=== PATIENT | female | born 1960 | race Caucasian/White ===

== ENCOUNTER 2017-10-01 12:14 | Day surgery (SDC) | payer BC ==
[2017-10-01] MEDS ORDERED: PROPOFOL 20 ML ×3 (14:33→14:40)
== END 2017-10-01 15:26 | disposition home or self-care (01) ==
LOC: GIL 12:14
DX: Z12.11 Encounter for screening for malignant neoplasm of colon (principal); D12.5 Benign neoplasm of sigmoid colon; K29.70 Gastritis, unspecified, without bleeding; K64.8 Other hemorrhoids; E66.01 Morbid (severe) obesity due to excess calories; Z68.35 Body mass index [BMI] 35.0-35.9, adult
CPT/HCPCS: 43239; 87081; 88305